=== PATIENT | female | born 1980 | race Two or more races ===

== ENCOUNTER 2020-05-15 21:05 | Emergency (ER) | payer SELFPAY ==
[~2020-05-15] VITALS: Ht 157.5 cm; Wt 60.0 kg
[2020-05-15] MEDS ORDERED: ondansetron 4mg rapidly disintigrating tab PO ONE (21:50)
[2020-05-15] MEDS ORDERED: LORazepam 1 MG tablet PO ONE (21:50)
--- NOTE | 2020-05-15 22:49 | NUR ---
cancelled all orders for IV and labs after discovering pt. simply took two OTC marijuana tablets. Given PO Zofran and Ativan
[2020-05-15 23:10] VITALS: BP 92/54
== END 2020-05-15 23:12 | disposition home or self-care (01) ==
LOC: ER 21:06
DX: R11.0 Nausea (principal); T40.7X5A Adverse effect of cannabis (derivatives), initial encounter; F41.9 Anxiety disorder, unspecified; G47.00 Insomnia, unspecified; Y92.89 Other specified places as the place of occurrence of the external cause
CPT/HCPCS: 71045; 93005; 99283